=== PATIENT | female | born 1990 | race African-American/Black ===

== ENCOUNTER 2020-11-20 01:19 | Emergency (ER) | payer MEDICAID ==
[~2020-11-20] VITALS: Ht 165.1 cm; Wt 81.0 kg
[2020-11-20 01:47] VITALS: BP 129/87
[2020-11-20] MEDS ORDERED: FLUORESCEIN SODIUM 1MG/STRIP LEFTEYE ONE (02:30)
[2020-11-20] MEDS ORDERED: IBUPROFEN 800MG TABLET PO ONE (02:30)
[2020-11-20] MEDS ORDERED: TETANUS, DIPHTHERIA, PERTUSSIS VAC/PF 0.5ML (>7YR OLD) IM ONE (02:30)
[2020-11-20] MEDS ORDERED: BACITRACIN ZINC OINT UDPKT TOP ONE (02:45)
[2020-11-20] MEDS ORDERED: BO1 TP (02:55)
[2020-11-20] MEDS ORDERED: ACET-2708 MT (02:55)
[2020-11-20] MEDS ORDERED: DEXT15DR5 LEFTEYE (02:55)
== END 2020-11-20 03:04 | disposition home or self-care (01) ==
LOC: ER 01:19
DX: S09.8XXA Other specified injuries of head, initial encounter (principal); Y08.89XA Assault by other specified means, initial encounter; Y93.9 Activity, unspecified; Y92.9 Unspecified place or not applicable
CPT/HCPCS: 90471; 90715; 99283

== ENCOUNTER 2021-05-19 20:48 | Emergency (ER) | payer MEDICAID ==
[~2021-05-19 20:48] MED LIST: ACET-2708 MT; BO1 TP; DEXT15DR5 LEFTEYE
== END 2021-05-20 00:50 | disposition left against medical advice (07) ==
LOC: ER 20:48
DX: Z53.21 Procedure and treatment not carried out due to patient leaving prior to being seen by health care provider (principal)

== ENCOUNTER 2021-08-22 16:28 | Emergency (ER) | payer MEDICAID ==
[~2021-08-22] VITALS: Ht 160 cm; Wt 91.0 kg
[2021-08-22 16:55] VITALS: BP 142/90
== END 2021-08-22 17:46 | disposition left against medical advice (07) ==
LOC: ER 16:28
DX: Z53.21 Procedure and treatment not carried out due to patient leaving prior to being seen by health care provider (principal)

== ENCOUNTER 2021-08-23 13:06 | Emergency (ER) | payer MEDICAID ==
[~2021-08-23] VITALS: Ht 162.6 cm; Wt 91.0 kg
[2021-08-23 13:07] VITALS: BP 144/92
[2021-08-23 14:53] LABS: BASOPHILS % 0.6 % (0.0-2.0); EOSINOPHILS % 3.3 % (0.0-5.0); HEMATOCRIT. 40.4 % (36.0-48.0); HEMOGLOBIN. 13.1 g/dL (12.0-16.0); LYMPHOCYTES % 24.7 % (20.0-50.0); MEAN CORPUSCULAR HEMOGLOBIN 26.4 pg (28.0-32.0); MEAN CORPUSCULAR VOLUME 81.7 fL (81.0-99.0); MEAN PLATELET VOLUME 7.9 fl (7.4-10.4); MONOCYTES % 8.6 % (2.0-8.0); NEUTROPHILS % 62.8 % (40.0-76.0); PLATELET 318 x1000/uL (130-400); RED BLOOD CELL COUNT 4.95 mill/uL (4.2-5.4); RED CELL DISTRIBUTION WIDTH 15.1 % (11.6-14.6)
[2021-08-23 15:03] LABS: CHLORIDE 108 mEq/L (98-107)
[2021-08-23 15:43] LABS: HCG SCREEN NEGATIVE
[2021-08-23 15:48] LABS: CLARITY URINE CLEAR (CLEAR); COLOR URINE YELLOW (YELLOW); KETONES URINE NEGATIVE (NEGATIVE); LEUKOCYTE ESTERASE URINE NEGATIVE (NEGATIVE); NITRITE URINE NEGATIVE (NEGATIVE); OCCULT BLOOD URINE NEGATIVE (NEGATIVE); PROTEIN URINE NEGATIVE (NEGATIVE); SPECIFIC GRAVITY URINE 1.025 (1.005-1.030); UROBILINOGEN URINE 0.2 E.U./dL (0.2-1.0)
== END 2021-08-23 16:53 | disposition home or self-care (01) ==
LOC: ER 13:06
DX: R10.2 Pelvic and perineal pain (principal)
CPT/HCPCS: 36415; 76830; 76856; 80048; 81003; 84703; 85025; 99284

== ENCOUNTER 2022-07-18 04:55 | Emergency (ER) | payer MEDICAID ==
[~2022-07-18] VITALS: Ht 165.1 cm; Wt 93.0 kg
[2022-07-18 09:45] VITALS: BP 144/80
[2022-07-18] MEDS ORDERED: IBUPROFEN 400MG TABLET PO ONE (09:45)
[2022-07-18] MEDS ORDERED: SERT-112 MT (10:01)
== END 2022-07-18 10:12 | disposition home or self-care (01) ==
LOC: ER 04:55
DX: H00.011 Hordeolum externum right upper eyelid (principal); Z76.0 Encounter for issue of repeat prescription
CPT/HCPCS: 81025; 99282

== ENCOUNTER 2024-02-25 17:21 | Emergency (ER) | payer MEDICAID ==
[~2024-02-25] VITALS: Ht 162.6 cm; Wt 81.6 kg
[~2024-02-25 17:21] MED LIST changes: +SERT-112 MT
[2024-02-25 18:44] VITALS: O2SAT 95
[2024-02-25] MEDS ORDERED: NITR-87 MT (20:25)
[2024-02-25] MEDS ORDERED: P50 MT (20:25)
[2024-02-25] MEDS ORDERED: IBUP-2029 MT (20:25)
[2024-02-25] MEDS ORDERED: DIPH25CA83 MT (20:25)
[2024-02-25] MEDS ORDERED: DIPHENHYDRAMINE 50MG CAPSULE PO ONE (20:30)
[2024-02-25] MEDS: DIPHENHYDRAMINE 25MG CAPSULE PO NR (20:59)
[2024-02-25] MEDS: IBUPROFEN 600MG TABLET PO ONE (20:59)
[2024-02-25 21:00] VITALS: BP 131/79; PULSE 91; RESP 18; TEMP 36.78072; O2SAT 97
== END 2024-02-25 21:01 | disposition home or self-care (01) ==
LOC: ER 17:21
DX: T78.40XA Allergy, unspecified, initial encounter (principal); R21 Rash and other nonspecific skin eruption; N30.90 Cystitis, unspecified without hematuria; Z79.899 Other long term (current) drug therapy; X58.XXXA Exposure to other specified factors, initial encounter
CPT/HCPCS: 99283; Q0163